=== PATIENT | female | born 1985 | race African-American/Black ===

== ENCOUNTER 2018-12-16 01:44 | Emergency (ER) | payer SELFPAY ==
[~2018-12-16] VITALS: Ht 157.5 cm; Wt 62.1 kg
--- NOTE | 2018-12-16 02:09 | PHYS DOC ---
Past Medical History Past Medical History: No Pertinent History Past Surgical History: Other (breast reduction surgery several years ago) Alcohol Use: None Drug Use: None Adult General Chief Complaint Chief Complaint: CHEST WALL PAIN HPI HPI Patient is a 33 year old female who presents with sternal, chest wall pain. This started at 2000 tonight. Patient reports a mild cough, no fever. No leg swelling. Patient denies any PE risk factors. Reports not getting any relief with 1 [id number] Tylenol. No radiation of discomfort. No nausea, no diaphoresis. Reports that the pain is moderate in intensity.[] Review of Systems Review of Systems Constitutional: Denies fever or chills [] Eyes: Denies change in visual acuity, redness, or eye pain [] HENT: Denies nasal congestion or sore throat [] Respiratory: Denies cough or shortness of breath [] Cardiovascular: No additional information not addressed in HPI [] GI: Denies abdominal pain, nausea, vomiting, bloody stools or diarrhea [] : Denies dysuria or hematuria [] Musculoskeletal: Denies back pain or joint pain [] Integument: Denies rash or skin lesions [] Neurologic: Denies headache, focal weakness or sensory changes [] Endocrine: Denies polyuria or polydipsia [] All other systems were reviewed and found to be within normal limits, except as documented in this note. Current Medications Current Medications Current Medications Medications (Trade) Dose Ordered Sig/Zarina Start Time Stop Time Status Last Admin Dose Admin Ketorolac Tromethamine (Toradol 15mg Vial) 15 mg 1X ONCE 12/16/18 02:15 12/16/18 02:16 DC 12/16/18 02:34 15 MG Allergies Allergies Allergies Coded Allergies Type Severity Reaction Last Updated Verified No Known Drug Allergies 01/24/14 No Physical Exam Physical Exam Constitutional: Well developed, well nourished, no acute distress, non-toxic appearance. [] HENT: Normocephalic, atraumatic, bilateral external ears normal, oropharynx moist, no oral exudates, nose normal. [] Eyes: PERRLA, EOMI, conjunctiva normal, no discharge. [] Neck: Normal range of motion, no tenderness, supple, no stridor. [] Cardiovascular:Heart rate regular rhythm, no murmur [] Lungs & Thorax: Bilateral breath sounds clear to auscultation, palpation of the sternum re-creates the discomfort [] Abdomen: Bowel sounds normal, soft, no tenderness, no masses, no pulsatile masses. [] Skin: Warm, dry, no erythema, no rash. [] Back: No tenderness, no CVA tenderness. [] Extremities: No tenderness, no cyanosis, no clubbing, ROM intact, no edema. [] Neurologic: Alert and oriented X 3, normal motor function, normal sensory function, no focal deficits noted. [] Psychologic: Affect normal, judgement normal, mood normal. [] Current Patient Data Vital Signs Vital Signs Date Time Temp Pulse Resp B/P (MAP) Pulse Ox O2 Delivery O2 Flow Rate FiO2 12/16/18 03:00 18 148/90 (109) 97 Room Air 12/16/18 01:55 98.5 79 98.5 EKG EKG EKG shows sinus rhythm at 74 bpm, normal axis, normal QTC at 456 ms, no ST elevation, interpreted by me at 0 232[] Radiology/Procedures Radiology/Procedures Chest x-ray shows increased right perihilar lung markings[] Course & Med Decision Making Course & Med Decision Making Pertinent Labs and Imaging studies reviewed. (See chart for details) Medical decision making: Patient scores 0 points on the PE rule out criteria, CURB-65 criteria score 0 points with the exception of unknown BUN. No evidence of an acute coronary syndrome. No pneumothorax, no effusion, no evidence of congestive heart failure[] Dragon Disclaimer Dragon Disclaimer This electronic medical record was generated, in whole or in part, using a voice recognition dictation system. Departure Departure Impression: Primary Impression: Bronchitis Disposition: 01 HOME, SELF-CARE Condition: GOOD Referrals: NON,STAFF (PCP) Patient Instructions: Acute Bronchitis Additional Instructions: Drink plenty of fluids. Follow-up with your regular doctor in 2 days. Return to the ER if worsening pain, difficulty breathing, or any other concerns. Scripts Meloxicam (MELOXICAM) 7.5 Mg Tablet 7.5 MG PO DAILY, #20 TAB Prov: ANDREA BRASHER DO 12/16/18 D-Methorphan Hb/Prometh Hcl (PROMETHAZINE-DM SYRUP) 118 Ml Syrup 5 ML PO PRN Q4HRS, #120 ML Prov: ANDREA BRASHER DO 2/9/19 Azithromycin (AZITHROMYCIN TABLET) 250 Mg Tablet 250 MG PO DAILY for ANTI-BIOTIC for 4 Days, #4 TAB 0 Refills Prov: ANDREA BRASHER DO 12/16/18 ANDREA BRASHER DO Dec 16, 2018 02:09
[2018-12-16] MEDS ORDERED: KETOROLAC 15 MG/ML VIAL. IM ONE (02:15)
[2018-12-16 02:52] LABS: BILIRUBIN,URINE NEGATIVE (NEG); CLARITY,URINE CLEAR; COLOR,URINE YELLOW; NITRITE,URINE NEGATIVE (NEG); PROTEIN,URINE NEGATIVE (NEG-TRACE); UROBILINOGEN,URINE 0.2 mg/dL (0.2 mg/dL)
[2018-12-16 03:12] LABS: BACTERIA,URINE FEW /HPF (0-FEW); RBC,URINE OCC /HPF (0-2); SQUAMOUS EPITHELIAL CELL,UR MOD /LPF
[2018-12-16] MEDS ORDERED: AZIT250T6 PO (03:12)
[2018-12-16] MEDS ORDERED: MELO7.5T29 PO (03:12)
[2018-12-16] MEDS ORDERED: PROM118S9 PO (03:12)
[2018-12-16] MEDS ORDERED: AZITHROMYCIN 250 MG TABLET. PO ONE (03:15)
[2018-12-16 03:30] VITALS: BP 131/92
[2018-12-16 03:32] LABS: U PREG PATIENT NEGATIVE (NEG)
--- NOTE | 2018-12-16 11:06 | RAD ---
CHEST PA LATERAL History: Chest discomfort with cough. COMPARISON: None FINDINGS: The cardiac silhouette is not enlarged. No evidence of infiltrate, pneumothorax or pleural effusion. IMPRESSION: No acute infiltrate identified. Electronically signed by: Hilario Medley MD (12/16/2018 11:02 AM) [facility]
--- NOTE | 2018-12-18 14:23 | EKG ---
[facility] [address] [place] [address] Test Date: 2018-12-16 Test Time: 02:21:29 Pat Name: DELFINA SAENZ Department: Room: Gender: F Sheet Sorter: : 1985 Requested By: ANDREA BRASHER Order Number: [id number] Reading MD: Pedro Quintero MD Measurements Intervals [place] Rate: 74 P: 45 ND: 140 QRS: 28 QRSD: 76 T: 13 QT: 406 QTc: 456 Interpretive Statements SINUS RHYTHM Electronically Signed On 12-21-2018 9:40:32 FOOT GATHERER by Pedro Quintero MD
== END 2018-12-16 03:55 | disposition home or self-care (01) ==
LOC: ER 01:44
DX: J40 Bronchitis, not specified as acute or chronic (principal)
CPT/HCPCS: 71046; 81001; 81025; 87086; 93005; 96372; 99284; J1885; Q0144; 99283